=== PATIENT | male | born 1990 | race Caucasian/White ===

== ENCOUNTER 2017-06-13 19:47 | Emergency (ER) | payer BC ==
[~2017-06-13] VITALS: Ht 177.8 cm; Wt 150.0 kg
[2017-06-13 19:51] VITALS: BP 150/77; TEMP 37.7; Ht 177.8 cm; Wt 150.0 kg
[2017-06-13 20:43] VITALS: PULSE 100; O2SAT 96
--- NOTE | 2017-06-13 23:58 | EMERGENCY ROOM VISIT NOTE ---
ED Visit Note First contact with patient: 19:55 CHIEF COMPLAINT: Open wound. HISTORY OF PRESENT ILLNESS: Mr. Walker is an 26-year-old white male who ambulates into the ED requesting a wound recheck for a recent pilonidal abscess surgery. Patient reports he had his surgery performed on May 31 and had a recheck on June [address] Lindsey. His surgical plan was to have stitching removed tomorrow in the office. Patient reports today he felt that a suture broke open and he had some mild clear drainage from his wound. He also noted the wound smell foul and this encouraged him to come to the ED for further evaluation. Associated with the above symptoms patient reports he is having a mild pain in the area that he rates as a 2/10 but this is what it has normally been since his surgery. He has not seen any purulent drainage from the wound. He denies any associated symptoms including fevers, chills, sweats, decreased appetite. REVIEW OF SYSTEMS: As noted above in History of Present Illness. PAST MEDICAL HISTORY: As noted above. CURRENT MEDICATION: Patient denies. ALLERGIES TO MEDICATION: Patient denies. SOCIAL HISTORY: Patient is currently employed; he feels safe in his home environment; he denies tobacco and alcohol use. PHYSICAL EXAM: Vital Signs: Date Time Temp Pulse Resp B/P (MAP) Pulse Ox O2 Delivery O2 Flow Rate FiO2 06/13/17 20:43 100 96 06/13/17 19:51 37.7 98 16 150/77 96 Room Air General: 26 year-old male in no acute distress, nontoxic appearing, afebrile and hemodynamically stable. Neurological: Awake, alert and oriented to person, place and time. Answering questions appropriately and following commands. Skin: Warm, dry and pink. Buttocks: Over the left upper gluteal fold patient has a surgical incision. Over the left surgical border there is mild erythema and edema. There is no active drainage from the wound but there is some dried blood and purulent-like material around the surgical site that is foul- smelling. The erythema surrounding the wound does not appear cellulitic and minimally warmer than the rest of the skin. No lymphangitis. No lesions that are indurated, pointing or fluctuant. Thorax: Lungs sounds are clear to auscultation and equal bilaterally with symmetrical chest wall movement. Abdomen: Flat, soft and nontender. Positive bowel sounds in all quadrants. No guarding or rigidity. ED COURSE: Patient is assessed as noted above. Patient's medication list was reviewed. I consulted the surgical PA, Dave Alejandre; he reports he was coming to the hospital for another person and would see the patient in the ED. We discussed his case and he felt a second course of antibiotics would not be required at this time but he should keep his follow-up as planned with Dr. Lindsey tomorrow. Patient was educated about his condition and instructed on his treatment plan; he verbalized understanding and agreement with this plan. CLINICAL IMPRESSION: Wound recheck. DISPOSITION: Patient discharged to home in stable condition. PLAN: Patient was encouraged to continue his current medications as prescribed. Patient was encouraged to follow-up with Dr. Lindsey tomorrow. Patient was encouraged return the ED for uncontrolled pain, puslike drainage, fevers, red streaking or any new/concerning symptoms.
== END 2017-06-13 20:45 | disposition home or self-care (01) ==
LOC: C.EDB 19:49 → C.EDD 20:45
DX: Z09 Encounter for follow-up examination after completed treatment for conditions other than malignant neoplasm (principal); L05.01 Pilonidal cyst with abscess